=== PATIENT | female | born 1995 | race Hispanic/Latino ===

== ENCOUNTER 2022-08-23 10:16 | Emergency (ER) | payer OTHER ==
[~2022-08-23] VITALS: Ht 154.9 cm; Wt 70.8 kg
[2022-08-23 11:33] LABS: CLARITY,URINE SL CLOUDY (CLEAR); COLOR,URINE YELLOW (YELLOW); KETONES,URINE NEGATIVE (NEGATIVE); LEUKOCYTE ESTERASE ,URINE NEGATIVE (NEGATIVE); NITRITE,URINE NEGATIVE (NEGATIVE); PROTEIN,URINE DIPSTICK NEGATIVE (NEGATIVE); URINE UROBILINOGEN 0.2 mg/dL (0.2 - 1)
[2022-08-23 12:04] LABS: BACTERIA,URINE MODERATE /HPF; EPITHELIAL CELLS,URINE MODERATE /LPF
[2022-08-23 12:06] LABS: RBC,URINE 0-5 /HPF (0-5)
[2022-08-23] MEDS ORDERED: MEDROL4 M2 PO (12:38)
[2022-08-23] MEDS ORDERED: ANAPROX DS550 MG PO (12:38)
[2022-08-23] MEDS ORDERED: METHOCARBAMOL750 MG PO (12:39)
== END 2022-08-23 13:11 | disposition home or self-care (01) ==
LOC: ER 10:30
DX: M46.1 Sacroiliitis, not elsewhere classified (principal); E78.5 Hyperlipidemia, unspecified
CPT/HCPCS: 72100; 81001; 81025; 99283